=== PATIENT | male | born 1945 | race African-American/Black ===

== ENCOUNTER → 2020-09-27 | Outpatient (CLI) | payer OTHER ==
--- NOTE | 2020-09-27 17:44 | RAD ---
DATE: 09/27/2020 EXAM: BREAST RIGHT, DIGITAL DIAGNOSTIC BILATERAL HISTORY: Palpable lump in the right breast COMPARISON: None This study was interpreted with the benefit of Computerized Aided Detection (CAD). Breast Density: FATTY The breast parenchyma is primarily fatty replaced. Breast parenchyma level density A. FINDINGS: There is a focal asymmetry in the retroareolar right breast that persists on spot compression. Ultrasound of the retroareolar region of the right breast demonstrates a somewhat flame-shaped hypoechoic area posterior to the nipple and extending slightly laterally from the retroareolar region. There is no discrete mass. No discrete fluid collection. No adenopathy in the axilla. IMPRESSION: Probable gynecomastia in the retroareolar right breast corresponding with the palpable abnormality. Recommend 6 month follow-up right breast mammogram and ultrasound to ensure stability. BI-RADS CATEGORY: 3 PROBABLY BENIGN FINDING(S)-SHORT INTERVAL FOLLOW-UP SUGGESTED RECOMMENDED FOLLOW-UP: 6M 6 MONTH FOLLOW-UP PQRS compliance statement: Patient information was entered into a reminder system with a target due date for the next mammogram. Mammography is a sensitive method for finding small breast cancers, but it does not detect them all and is not a substitute for careful clinical examination. A negative mammogram does not negate a clinically suspicious finding and should not result in delay in biopsying a clinically suspicious abnormality. "Our facility is accredited by the [employer] Mammography Program."
== END ==
LOC: MAMMO 13:12
PROVIDERS: ATTEND Nurse Practitioner Family
DX: N63.10 Unspecified lump in the right breast, unspecified quadrant (principal)
CPT/HCPCS: 76641; 77066